=== PATIENT | male | born 1960 | race Caucasian/White ===

== ENCOUNTER 2019-07-11 22:47 | Observation (INO) | payer OTHER ==
[~2019-07-11] VITALS: Ht 170.2 cm; Wt 72.6 kg
[2019-07-11 22:50] VITALS: BP 157/78
[2019-07-12 00:05] LABS: ABSOLUTE NEUTROPHILS 5.1 thou/uL (1.4-8.2); BASOPHILS 0.4 % (0.0-2.0); EOSINOPHILS 0.4 % (0.0-3.0); HEMATOCRIT 39.3 % (42.0-52.0); HEMOGLOBIN 13.3 gm/dL (14.0-18.0); LYMPHOCYTES 27.5 % (24.0-44.0); MCH 32.3 pg (26.0-34.0); MCHC 33.8 g/dL (28.0-37.0); MCV 95.5 fL (80.0-100.0); PLATELET COUNT 206 thou/uL (150-400); POLYS 65.7 % (36.0-66.0); RBC 4.11 mil/uL (4.50-6.00); RDW 13.6 % (10.5-14.5); WBC 7.7 thou/uL (4.0-11.0)
[2019-07-12 00:14] LABS: APTT 27.1 Seconds (24.5-32.8); CALCIUM 8.8 mg/dL (8.5-10.1); POTASSIUM 3.8 mmol/L (3.5-5.1); PROTIME 10.2 Seconds (9.3-11.4)
[2019-07-12 00:19] LABS: ALBUMIN 3.7 g/dL (3.4-5.0); TOTAL BILIRUBIN 0.4 mg/dL (<0.1-1.0); TOTAL PROTEIN 8.2 g/dL (6.4-8.2)
[2019-07-12 06:30] LABS: HEMATOCRIT 41.4 % (42.0-52.0)
--- NOTE | 2019-07-12 07:03 | NUR ---
PT TO BATHROOM FOR APPROX 4TH STOOL. STOOL NOTED TO BE LIQUID BROWN, NO VISIBLE SIGNS OF OBVIOUS BLEEDING.
[2019-07-12 07:32] VITALS: BP 143/77
--- NOTE | 2019-07-12 08:32 | EKG ---
[address] [address] ELECTROCARDIOGRAM REPORT Name: IVONNE EDGAR Room #: 463-P [facility].#: [id number] ������������������ Admission: 07/12/19 ������������������ Attend Phys: Asael Tapia MD Discharge: ������������������ Date of : 60 Report #: [id number] ����������������������������������������������������������������� [id number] THIS REPORT FOR: //name// [facility] ED Test Date: 2019-07-12 Test Time: 01:06:30 Pat Name: IVONNE LEEJANETTE UMANA Department: Room: 46 Gender: M Watch Adjuster: MONTSE : 1960 Requested By: Natalia Morales Order Number: [id number] MD: Dane Martin Measurements Intervals [place] Rate: 77 P: 47 CA: 151 QRS: 39 QRSD: 86 T: 15 QT: 410 QTc: 465 Interpretive Statements Sinus rhythm Normal tracing No previous ECG available for comparison Electronically Signed On 07-12-2019 8:32:08 CDT by Dane Martin [email or web address] ��������������������������������������������� <ELECTRONICALLY SIGNED> ���������������������������������������� By: Dane Martin MD, [facility] ��������������������������������������������� 07/12/19 0832 [id number] [id number] Dane Martin MD, FACC /EPI
[2019-07-12 12:06] LABS: HEMATOCRIT 40.5 % (42.0-52.0); HEMOGLOBIN 13.8 gm/dL (14.0-18.0)
--- NOTE | 2019-07-12 14:44 | NUR ---
PT ARRIVED ON UNIT FROM ER THIS MORNING. ADMISSION ASSESSMENT, HX AND EDUCATION COMPLETE. PT TO HAVE COLONOSCOPY LATER TODAY. ORDERS IMPLEMENTED. PT RESTING. PT IS NON [employer] [place] SPEAKING HOWEVER PT'S SON IS ACCOMPANYING HIM AND IS ABLE TO TRANSLATE.
[2019-07-12 15:23] VITALS: BP 138/66
[2019-07-12 15:24] VITALS: BP 138/66
--- NOTE | 2019-07-12 17:12 | NUR ---
PT STABLE THROUGHOUT SHIFT. PT HAD COLONOSCOPY WHICH HE TOLERATED WELL. PT DISCHARGED HOME, GIVEN DC AND FOLLOW UP INSTRUCTIONS. PT LEFT UNIT VIA WHEELCHAIR TO PRIVATE VEHICLE.
--- NOTE | 2019-07-13 19:06 | PATH ---
[facility] [address] [place] [address] PATHOLOGY RPT PROCEDURE Name: SHAWN EDGAR Room #: 463-P [facility] Henry#: [id number] ������������������ Admission: 07/12/19 ������������������ Date of : 60 Discharge: 07/12/19 Report #: [id number] Path Case #: [id number] [facility] Accession Number: [id number] . 01 Material submitted: . colon - BIOPSY POLYP AT DESCENDING COLON. Modifiers: descending . 01 Clinical history: . GI bleed, colon polyp, sigmoid diverticulosis . 02 Diagnosis: Polyp, at descending colon, endoscopic biopsy: - Tubular adenoma. - Negative for high grade dysplasia. . (IUV:mml; 07/13/2019) QLM/07/13/2019 . 02 Electronically signed: . Krys Alvarez MD, Pathologist NPI- [id number] . 01 Gross description: . The specimen is received in formalin, labeled "Mcfarlane Chris Shawn, BX of polyp at descending colon ", are two irregular fragments of garcia soft tissue measuring 0.3 and 0.5 cm in greatest dimension. Entirely submitted in A1. (SWS; 07/12/2019) SHS/SHS . 02 Pathologist provided ICD-10: D12.4 . 02 CPT . 556622 Specimen Comment: A courtesy copy of this report has been sent to Specimen Comment: [phone]. Specimen Comment: Report sent to Performed at: [address], [place] [id number] MD Nick Arteaga MD Phone: [phone] Performed at: [address] [id number] MD Krys Alvarez MD Phone: [phone]
== END 2019-07-12 17:34 | disposition home or self-care (01) ==
LOC: ER 22:47 → EROBS 07-12 01:44 → 4W 07-12 07:42 → ENTRNSPT 07-12 15:43 → EDTRNSPTSTS 07-12 15:45 → 4W 07-12 17:34
PROVIDERS: Nurse Practitioner Acute Care; Student in an Organized Health Care Education/Training Program; ADMIT Internal Medicine
DX: K57.30 Diverticulosis of large intestine without perforation or abscess without bleeding (principal); K92.1 Melena; R42 Dizziness and giddiness; G51.0 Bell's palsy
CPT/HCPCS: 62110; 62900; 70005